=== PATIENT | female | born 1950 | race Caucasian/White ===

== ENCOUNTER 2021-05-28 15:36 | Emergency (ER) | payer OTHER ==
[~2021-05-28] VITALS: Ht 157.5 cm; Wt 95.3 kg
[~2021-05-28 15:36] MED LIST: AGRYLIN0.5 MG PO; B 12 PO; B12INJ; CARAFATE 1 GM TA1 G1 PO; CARVEDILOL12.5 MG PO; GABAPENTIN 100100 MG PO; HYDROCODON-ACE1 EAC7 PO; IBUPROFEN 400400 M2 PO; JAKAFI5 MG PO; L-LYSINE1000 M1 PO; LANTUS SOL100 UNIT/1 SQ; LANTUSSOLASTAR SUBQ; LEVOTHYROXIN0.125 M1 PO; LEVOTHYROXINE 0.1 MG PO; NOVOLOG100 UNIT/1 SUBQ; PEPCID COMPLET1 EACH PO; SUCRALFATE PO; ZOFRAN4 MG PO; [UNRECOGNIZED DRUG - OTHER]; [UNRECOGNIZED DRUG - OTHER] PO
[2021-05-28 16:54] VITALS: BP 150/70
== END 2021-05-28 16:55 | disposition home or self-care (01) ==
LOC: M.ERS 15:36
DX: S61.012A Laceration without foreign body of left thumb without damage to nail, initial encounter (principal); E11.9 Type 2 diabetes mellitus without complications; I10 Essential (primary) hypertension; E03.9 Hypothyroidism, unspecified; K21.9 Gastro-esophageal reflux disease without esophagitis; Z90.89 Acquired absence of other organs; Z79.899 Other long term (current) drug therapy; Z88.5 Allergy status to narcotic agent; Z88.6 Allergy status to analgesic agent; Z88.0 Allergy status to penicillin; Z88.8 Allergy status to other drugs, medicaments and biological substances; X58.XXXA Exposure to other specified factors, initial encounter; Y93.89 Activity, other specified; Y92.89 Other specified places as the place of occurrence of the external cause; Y99.8 Other external cause status